=== PATIENT | female | born 1990 | race Caucasian/White ===

== ENCOUNTER 2018-08-16 18:11 | Emergency (ER) | payer BC, MEDICAID ==
[~2018-08-16] VITALS: Ht 167.6 cm; Wt 54.5 kg
[2018-08-16] MEDS ORDERED: adenosine 3mg/ml 2ml vial IV ONE ×2 (18:25)
[2018-08-16] MEDS ORDERED: ondansetron/PF 4mg/2ml inj IV ONE (18:30)
[2018-08-16 18:47] LABS: BASOPHILS % (AUTO) 0.3 % (0-1); EOSINOPHILS % (AUTO) 0.2 % (0-6); HEMOGLOBIN 15.5 g/dl (12.0-16.0); LYMPHOCYTES % (AUTO) 22.2 % (21-51); MEAN CORPUSCULAR HEMOGLOBIN 31.1 PG (27.0-31.0); MEAN CORPUSCULAR HGB CONC 33.6 g/dL (33.0-36.5); MEAN CORPUSCULAR VOLUME 92.3 FL (78-98); MEAN PLATELET VOLUME 6.8 FL (7.4-10.4); MONOCYTES # (AUTO) 0.8 X10'3 (0-0.9); MONOCYTES % (AUTO) 5.6 % (2-12); NEUTROPHILS # (AUTO) 9.8 X10'3 (1.8-7.7); NEUTROPHILS % (AUTO) 71.7 % (42-75); PLATELET COUNT 358 X10'3 (140-440); RED BLOOD COUNT 4.98 X10'6 (4.20-5.60); RED CELL DISTRIBUTION WIDTH 13.5 % (11.5-14.5); WHITE BLOOD COUNT 13.7 X10'3 (4.5-11.0)
[2018-08-16 19:00] LABS: ALANINE AMINOTRANSFERASE 22 U/L (12-78); ALBUMIN/GLOBULIN RATIO 1.2 (1.1-1.5); ALKALINE PHOSPHATASE 88 IU/L (46-116); ANION GAP 11 (8-16); ASPARTATE AMINO TRANSFERASE 21 U/L (10-37); BILIRUBIN,TOTAL 0.3 MG/DL (0.1-1.0); BLOOD UREA NITROGEN 9 MG/DL (7-18); CALCIUM 8.9 MG/DL (8.5-10.1); CHLORIDE 99 MMOL/L (99-107); CREATININE 0.82 MG/DL (0.40-0.90); GLUCOSE 206 MG/DL (70-104); POTASSIUM 3.6 MMOL/L (3.5-5.1); SODIUM 135 MMOL/L (135-145); TOTAL CARBON DIOXIDE 25.4 MMOL/L (24-32); TOTAL PROTEIN 7.4 G/DL (6.4-8.2); eGFR 84 ML/MIN
[2018-08-16 19:07] LABS: MAGNESIUM 1.9 MG/DL (1.5-2.4)
[2018-08-16] MEDS ORDERED: propranolol 10mg tablet PO ONE (19:25)
[2018-08-16] MEDS ORDERED: LORazepam 1 MG tablet PO ONE (20:15)
[2018-08-16 21:08] VITALS: BP 118/62
[2018-08-16] MEDS ORDERED: LORA0.5T PO (22:28)
== END 2018-08-16 22:36 | disposition home or self-care (01) ==
LOC: ER 18:12
DX: I47.1 Supraventricular tachycardia (principal); F17.210 Nicotine dependence, cigarettes, uncomplicated; F12.90 Cannabis use, unspecified, uncomplicated; Z88.8 Allergy status to other drugs, medicaments and biological substances; Z79.899 Other long term (current) drug therapy; Z98.890 Other specified postprocedural states
CPT/HCPCS: 36415; 71045; 80053; 83735; 83880; 84484; 85025; 93005; 96374; 99284; J0153; J2405

== ENCOUNTER 2020-07-12 00:50 | Emergency (ER) | payer MEDICAID ==
[~2020-07-12] VITALS: Ht 162.6 cm; Wt 72.7 kg
[2020-07-12 00:51] VITALS: BP 109/87
[2020-07-12 01:10] LABS: URINE HCG NEGATIVE (NEG)
[2020-07-12 01:21] LABS: CLARITY,URINE CLEAR (Clear); COLOR,URINE YELLOW (Yellow); GLUCOSE, URINE NEGATIVE (Neg); KETONES,URINE NEGATIVE (Neg); LEUKOCYTE ESTERASE ,URINE NEGATIVE (Neg); NITRITES, URINE NEGATIVE (Neg); OCCULT BLOOD,URINE NEGATIVE (Neg); PROTEIN,URINE NEGATIVE (Neg); UROBILINOGEN,URINE 0.2 E.U/dL (0.2-1.0)
[2020-07-12 01:23] LABS: UA COLLECTION TYPE CLN CATCH MIDSTREAM
[2020-07-12 01:24] LABS: URINE AMPHETAMINE SCREEN NEGATIVE (Neg); URINE BARBITUATE SCREEN NEGATIVE (Neg); URINE BENZODIAZEPINES SCREEN NEGATIVE (Neg); URINE CANNABINOID SCREEN NEGATIVE (Neg); URINE COCAINE SCREEN NEGATIVE (Neg); URINE METHADONE SCREEN NEGATIVE (Neg); URINE OPIATE SCREEN NEGATIVE (Neg); URINE PHENCYCLIDINE SCREEN NEGATIVE (Neg)
--- NOTE | 2020-07-12 05:39 | NUR ---
no nursing interventions required other than urine collection.
== END 2020-07-12 05:40 | disposition home or self-care (01) ==
LOC: ER 00:50
DX: F10.129 Alcohol abuse with intoxication, unspecified (principal); R47.81 Slurred speech; F12.90 Cannabis use, unspecified, uncomplicated; Z98.890 Other specified postprocedural states; Z72.89 Other problems related to lifestyle; Z88.8 Allergy status to other drugs, medicaments and biological substances; Y90.9 Presence of alcohol in blood, level not specified
CPT/HCPCS: 80305; 81003; 81025; 93005; 99284

== ENCOUNTER 2020-09-27 17:48 | Emergency (ER) | payer MEDICAID ==
[~2020-09-27] VITALS: Ht 167.6 cm; Wt 72.7 kg
[2020-09-27] MEDS ORDERED: adenosine 3mg/ml 2ml vial IV ONE ×3 (18:00→18:15)
[2020-09-27] MEDS ORDERED: normal saline 1000ML IV soln IVB ONE (18:15)
[2020-09-27 18:24] LABS: BASOPHILS # (AUTO) 0.1 X10'3 (0-0.2); BASOPHILS % (AUTO) 0.7 % (0-1); EOSINOPHILS # (AUTO) 0.1 X10'3 (0-0.9); EOSINOPHILS % (AUTO) 1.7 % (0-6); HEMATOCRIT 39.7 % (35.0-45.0); HEMOGLOBIN 13.8 g/dl (12.0-16.0); LYMPHOCYTES # (AUTO) 3.1 X10'3 (1.1-4.8); LYMPHOCYTES % (AUTO) 40.3 % (21-51); MEAN CORPUSCULAR HEMOGLOBIN 31.2 PG (27.0-31.0); MEAN CORPUSCULAR HGB CONC 34.6 g/dL (33.0-36.5); MEAN CORPUSCULAR VOLUME 89.9 FL (78-98); MEAN PLATELET VOLUME 6.3 FL (7.4-10.4); MONOCYTES # (AUTO) 0.5 X10'3 (0-0.9); MONOCYTES % (AUTO) 7.2 % (2-12); NEUTROPHILS # (AUTO) 3.8 X10'3 (1.8-7.7); NEUTROPHILS % (AUTO) 50.1 % (42-75); PLATELET COUNT 398 X10'3 (140-440); RED BLOOD COUNT 4.42 X10'6 (4.20-5.60); RED CELL DISTRIBUTION WIDTH 14.3 % (11.5-14.5); WHITE BLOOD COUNT 7.6 X10'3 (4.5-11.0)
[2020-09-27 18:34] LABS: ALANINE AMINOTRANSFERASE 17 U/L (12-78); ALBUMIN 3.7 G/DL (3.4-5.0); ALKALINE PHOSPHATASE 86 IU/L (46-116); ANION GAP 10 (8-16); ASPARTATE AMINO TRANSFERASE 8 U/L (10-37); BILIRUBIN,TOTAL 0.1 MG/DL (0.1-1.0); BLOOD UREA NITROGEN 11 MG/DL (7-18); BUN/CREATININE RATIO 15.5 (6.6-38.0); CALCIUM 8.2 MG/DL (8.5-10.1); CHLORIDE 105 MMOL/L (99-107); CREATININE 0.71 MG/DL (0.40-0.90); GLUCOSE 128 MG/DL (70-104); MAGNESIUM 1.8 MG/DL (1.5-2.4); POTASSIUM 3.5 MMOL/L (3.5-5.1); SODIUM 135 MMOL/L (135-145); TOTAL CARBON DIOXIDE 19.9 MMOL/L (24-32); TOTAL PROTEIN 7.3 G/DL (6.4-8.2); eGFR > 90 ML/MIN
[2020-09-27 19:02] VITALS: BP 102/70
== END 2020-09-27 19:17 | disposition home or self-care (01) ==
LOC: ER 17:49
DX: I47.1 Supraventricular tachycardia (principal); R42 Dizziness and giddiness; R06.02 Shortness of breath; F12.90 Cannabis use, unspecified, uncomplicated; Z98.890 Other specified postprocedural states; Z72.89 Other problems related to lifestyle; Z88.8 Allergy status to other drugs, medicaments and biological substances
CPT/HCPCS: 36415; 71045; 80053; 83735; 85025; 93005; 96374; 99285; J0153; J7030

== ENCOUNTER 2022-01-23 22:05 | Emergency (ER) | payer MEDICAID ==
[~2022-01-23] VITALS: Ht 167.6 cm; Wt 59.1 kg
[2022-01-23 22:31] VITALS: BP 129/91
[2022-01-23] MEDS ORDERED: mineral oil 133ml enema RC ONE (22:50)
== END 2022-01-24 02:16 ==
LOC: ER 22:05
DX: Z02.89 Encounter for other administrative examinations (principal); K59.00 Constipation, unspecified; R11.0 Nausea; F12.90 Cannabis use, unspecified, uncomplicated; Z72.89 Other problems related to lifestyle; Z98.890 Other specified postprocedural states; Z88.8 Allergy status to other drugs, medicaments and biological substances
CPT/HCPCS: 70450; 74018; 99284

== ENCOUNTER 2022-01-24 03:14 | Emergency (ER) | payer MEDICAID ==
[~2022-01-24] VITALS: Ht 167.6 cm; Wt 59.0 kg
[2022-01-24 03:38] VITALS: BP 113/79
== END 2022-01-24 04:49 ==
LOC: ER 03:15
DX: Z13.89 Encounter for screening for other disorder (principal); T40.415A Adverse effect of fentanyl or fentanyl analogs, initial encounter; F17.200 Nicotine dependence, unspecified, uncomplicated; F12.90 Cannabis use, unspecified, uncomplicated; Z72.89 Other problems related to lifestyle; Z98.890 Other specified postprocedural states; Z79.899 Other long term (current) drug therapy; Y92.89 Other specified places as the place of occurrence of the external cause
CPT/HCPCS: 99283

== ENCOUNTER 2023-02-10 16:16 | Emergency (ER) | payer MEDICAID ==
[~2023-02-10] VITALS: Ht 167.6 cm; Wt 63.2 kg
[2023-02-10 16:40] VITALS: BP 118/74; PULSE 101; TEMP 98.8; O2SAT 99
[2023-02-10] MEDS ORDERED: AMOX-101 PO (16:55)
[2023-02-10] MEDS ORDERED: IBUP-1986 PO (16:55)
[2023-02-10] MEDS ORDERED: ketorolac trometh. 30mg/ml inj. IM ONE (17:00)
[2023-02-10 17:10] VITALS: RESP 18
== END 2023-02-10 17:17 | disposition home or self-care (01) ==
LOC: ER 16:17
DX: K08.89 Other specified disorders of teeth and supporting structures (principal); F12.90 Cannabis use, unspecified, uncomplicated; Z72.89 Other problems related to lifestyle; Z88.8 Allergy status to other drugs, medicaments and biological substances; Z79.2 Long term (current) use of antibiotics; Z79.899 Other long term (current) drug therapy
CPT/HCPCS: 96372; 99283; J1885

== ENCOUNTER → 2023-02-21 | Emergency (ER) | payer MEDICAID ==
[~2023-02-21] VITALS: Ht 167.6 cm; Wt 65.3 kg
[~2023-02-21] MED LIST: CIPR-259 PO; IBUP-1986 PO; iohexol 300mg/ml 100ml inj. ONE
[2023-02-21 19:06] LABS: URINE HCG NEGATIVE (NEG)
[2023-02-21 19:07] LABS: BILIRUBIN,URINE NEGATIVE (Neg); CLARITY,URINE SLIGHTLY CLOUDY (Clear); COLOR,URINE STRAW (Yellow); GLUCOSE, URINE NEGATIVE (Neg); KETONES,URINE NEGATIVE (Neg); LEUKOCYTE ESTERASE ,URINE SMALL (Neg); NITRITES, URINE NEGATIVE (Neg); OCCULT BLOOD,URINE NEGATIVE (Neg); PROTEIN,URINE NEGATIVE (Neg); UROBILINOGEN,URINE 0.2 E.U/dL (0.2-1.0)
[2023-02-21 19:10] LABS: UA COLLECTION TYPE CLN CATCH MIDSTREAM
[2023-02-21 19:15] LABS: BACTERIA,URINE FEW /HPF (Neg); MUCUS STRANDS FEW /LPF (Neg); RBC,URINE 0-2 /HPF (0-2); SQUAMOUS EPITHELIAL CELL,UR FEW /LPF (FEW); TRANSITIONAL EPI CELLS,URINE FEW /HPF
[2023-02-21 19:20] LABS: BASOPHILS % (AUTO) 0.3 % (0-1); EOSINOPHILS # (AUTO) 0.2 X10'3 (0-0.9); EOSINOPHILS % (AUTO) 2.2 % (0-6); HEMATOCRIT 41.3 % (35.0-45.0); HEMOGLOBIN 13.9 g/dl (12.0-16.0); LYMPHOCYTES # (AUTO) 3.9 X10'3 (1.1-4.8); LYMPHOCYTES % (AUTO) 43.1 % (21-51); MEAN CORPUSCULAR HGB CONC 33.7 g/dL (33.0-36.5); MEAN CORPUSCULAR VOLUME 89.1 FL (78-98); MEAN PLATELET VOLUME 6.9 FL (7.4-10.4); MONOCYTES # (AUTO) 0.6 X10'3 (0-0.9); MONOCYTES % (AUTO) 6.7 % (2-12); NEUTROPHILS # (AUTO) 4.4 X10'3 (1.8-7.7); NEUTROPHILS % (AUTO) 47.7 % (42-75); PLATELET COUNT 285 X10'3 (140-440); RED BLOOD COUNT 4.63 X10'6 (4.20-5.60); RED CELL DISTRIBUTION WIDTH 13.7 % (11.5-14.5); WHITE BLOOD COUNT 9.2 X10'3 (4.5-11.0)
[2023-02-21 19:31] LABS: ALANINE AMINOTRANSFERASE 28 U/L (12-78); ALBUMIN 4.1 G/DL (3.4-5.0); ALBUMIN/GLOBULIN RATIO 1.6 (1.1-1.5); ALKALINE PHOSPHATASE 66 IU/L (46-116); ANION GAP 6 (8-16); ASPARTATE AMINO TRANSFERASE 19 U/L (10-37); BILIRUBIN,TOTAL 0.2 MG/DL (0.1-1.0); BLOOD UREA NITROGEN 11 MG/DL (7-18); BUN/CREATININE RATIO 14.9 (10.0-20.0); CALCIUM 8.8 MG/DL (8.5-10.1); CHLORIDE 102 MMOL/L (99-107); CREATININE 0.74 MG/DL (0.40-0.90); GLUCOSE 84 MG/DL (70-104); LIPASE 24 U/L (16-77); POTASSIUM 3.7 MMOL/L (3.5-5.1); SODIUM 138 MMOL/L (135-145); TOTAL CARBON DIOXIDE 29.6 MMOL/L (24-32); TOTAL PROTEIN 6.7 G/DL (6.4-8.2); eCRCL 103 ML/MIN; eGFR > 90 ML/MIN
--- NOTE | 2023-02-21 20:10 | NUR ---
Per pt under no circumstances am I to be given any opiates.
[2023-02-21 22:37] VITALS: BP 98/60; PULSE 92; RESP 16; TEMP 98.6; O2SAT 97
== END | disposition home or self-care (01) ==
LOC: ER 18:25
DX: N39.0 Urinary tract infection, site not specified (principal); Z88.8 Allergy status to other drugs, medicaments and biological substances; Z79.2 Long term (current) use of antibiotics; Z79.1 Long term (current) use of non-steroidal anti-inflammatories (NSAID)
CPT/HCPCS: 36415; 74177; 80053; 81001; 81025; 83690; 85025; 87088; 99285; J3490; Q9967

== ENCOUNTER 2023-04-07 15:10 | Emergency (ER) | payer MEDICAID ==
[~2023-04-07] VITALS: Ht 167.6 cm; Wt 63.6 kg
[~2023-04-07 15:10] MED LIST changes: -CIPR-259 PO; -iohexol 300mg/ml 100ml inj. ONE
[2023-04-07 15:16] VITALS: BP 107/69; PULSE 105; RESP 16; TEMP 98.7; O2SAT 99
== END 2023-04-07 16:23 | disposition home or self-care (01) ==
LOC: ER 15:10
DX: S62.612A Displaced fracture of proximal phalanx of right middle finger, initial encounter for closed fracture (principal); Z72.89 Other problems related to lifestyle; Z98.890 Other specified postprocedural states; Z88.8 Allergy status to other drugs, medicaments and biological substances; Z79.899 Other long term (current) drug therapy; X50.1XXA Overexertion from prolonged static or awkward postures, initial encounter; Y93.89 Activity, other specified; Y92.89 Other specified places as the place of occurrence of the external cause; Y99.8 Other external cause status
CPT/HCPCS: 29130; 73140; 99283

== ENCOUNTER 2023-04-28 13:40 | Emergency (ER) | payer MEDICAID ==
[~2023-04-28] VITALS: Ht 167.6 cm; Wt 70.3 kg
[2023-04-28] MEDS ORDERED: ketorolac trometh inj. 60 MG/2 ML VIAL IM ONE (15:40)
[2023-04-28] MEDS ORDERED: ondansetron 4mg rapidly disintigrating tab PO ONE (15:55)
[2023-04-28] MEDS ORDERED: HYDROcodone/acetaminophen 10/325mg tab PO ONE (15:55)
[2023-04-28] MEDS ORDERED: HYDR-3965 PO (16:21)
[2023-04-28] MEDS ORDERED: ONDA4TAB12 PO (16:21)
[2023-04-28 16:25] VITALS: BP 120/60; PULSE 74; RESP 18; TEMP 97.8; O2SAT 97
== END 2023-04-28 16:26 | disposition home or self-care (01) ==
LOC: ER 13:40
DX: S32.2XXA Fracture of coccyx, initial encounter for closed fracture (principal); Z88.8 Allergy status to other drugs, medicaments and biological substances; Z79.1 Long term (current) use of non-steroidal anti-inflammatories (NSAID); Z79.899 Other long term (current) drug therapy; W19.XXXA Unspecified fall, initial encounter; Y93.89 Activity, other specified; Y92.89 Other specified places as the place of occurrence of the external cause; Y99.8 Other external cause status
CPT/HCPCS: 72220; 96372; 99284; J1885

== ENCOUNTER 2023-08-24 07:15 | Emergency (ER) | payer MEDICAID ==
[~2023-08-24] VITALS: Ht 167.6 cm; Wt 77.3 kg
[~2023-08-24 07:15] MED LIST changes: +ONDA4TAB12 PO
[2023-08-24] MEDS: ketorolac tromethamine 15mg/ml inj. IV ONE (11:33)
[2023-08-24] MEDS: diazepam 5mg tablet PO ONE (11:35)
[2023-08-24] MEDS: ketorolac tromethamine 15mg/ml inj. IM ONE (11:45)
[2023-08-24 11:54] LABS: BILIRUBIN,URINE NEGATIVE (Neg); CLARITY,URINE CLOUDY (Clear); COLOR,URINE STRAW (Yellow); GLUCOSE, URINE NEGATIVE (Neg); KETONES,URINE NEGATIVE (Neg); LEUKOCYTE ESTERASE ,URINE NEGATIVE (Neg); NITRITES, URINE NEGATIVE (Neg); OCCULT BLOOD,URINE TRACE-INTACT (Neg); PROTEIN,URINE NEGATIVE (Neg); URINE HCG NEGATIVE (NEG); UROBILINOGEN,URINE 0.2 E.U/dL (0.2-1.0)
[2023-08-24 11:59] LABS: UA COLLECTION TYPE CLN CATCH MIDSTREAM
[2023-08-24 12:01] LABS: SQUAMOUS EPITHELIAL CELL,UR MANY /LPF (FEW)
[2023-08-24 12:02] LABS: URINE AMPHETAMINE SCREEN NEGATIVE (Neg); URINE BARBITUATE SCREEN NEGATIVE (Neg); URINE BENZODIAZEPINES SCREEN NEGATIVE (Neg); URINE CANNABINOID SCREEN POSITIVE (Neg); URINE COCAINE SCREEN NEGATIVE (Neg); URINE METHADONE SCREEN NEGATIVE (Neg); URINE OPIATE SCREEN NEGATIVE (Neg); URINE PHENCYCLIDINE SCREEN NEGATIVE (Neg)
[2023-08-24 12:06] LABS: BACTERIA,URINE 1+ /HPF (Neg)
[2023-08-24 12:07] LABS: RBC,URINE 0-2 /HPF (0-2)
[2023-08-24 12:27] VITALS: BP 123/80; PULSE 82; O2SAT 98
[2023-08-24] MEDS ORDERED: CYCL-1 PO (13:33)
[2023-08-24] MEDS ORDERED: NAPR-56 PO (13:33)
[2023-08-24 13:44] VITALS: RESP 17; TEMP 98.6
== END 2023-08-24 13:45 | disposition home or self-care (01) ==
LOC: ER 07:15
DX: M47.812 Spondylosis without myelopathy or radiculopathy, cervical region (principal); M19.90 Unspecified osteoarthritis, unspecified site; Z88.8 Allergy status to other drugs, medicaments and biological substances; Z79.1 Long term (current) use of non-steroidal anti-inflammatories (NSAID)
CPT/HCPCS: 72125; 80305; 81001; 81025; 96372; 99285; J1885

== ENCOUNTER 2024-05-15 18:20 | Emergency (ER) | payer MEDICAID ==
[~2024-05-15] VITALS: Ht 167.6 cm; Wt 79.3 kg
[~2024-05-15 18:20] MED LIST changes: +CYCL-1 PO; +ONDA-243 PO; -ONDA4TAB12 PO
[2024-05-15 18:54] VITALS: TEMP 98.7
[2024-05-15 19:33] LABS: BASOPHILS % (AUTO) 0.4 % (0-1); EOSINOPHILS # (AUTO) 0.2 X10'3 (0-0.9); HEMATOCRIT 39.5 % (35.0-45.0); HEMOGLOBIN 13.6 g/dl (12.0-16.0); LYMPHOCYTES # (AUTO) 3.4 X10'3 (1.1-4.8); LYMPHOCYTES % (AUTO) 35.9 % (21-51); MEAN CORPUSCULAR HGB CONC 34.4 g/dL (33.0-36.5); MEAN CORPUSCULAR VOLUME 90.3 FL (78-98); MEAN PLATELET VOLUME 6.6 FL (7.4-10.4); MONOCYTES # (AUTO) 0.6 X10'3 (0-0.9); NEUTROPHILS # (AUTO) 5.2 X10'3 (1.8-7.7); NEUTROPHILS % (AUTO) 55.7 % (42-75); PLATELET COUNT 309 X10'3 (140-440); RED BLOOD COUNT 4.38 X10'6 (4.20-5.60); RED CELL DISTRIBUTION WIDTH 12.5 % (11.5-14.5); WHITE BLOOD COUNT 9.4 X10'3 (4.5-11.0)
[2024-05-15 19:41] LABS: BILIRUBIN,URINE NEGATIVE (Neg); CLARITY,URINE CLEAR (Clear); COLOR,URINE YELLOW (Yellow); GLUCOSE, URINE NEGATIVE (Neg); KETONES,URINE NEGATIVE (Neg); LEUKOCYTE ESTERASE ,URINE NEGATIVE (Neg); NITRITES, URINE NEGATIVE (Neg); OCCULT BLOOD,URINE LARGE (Neg); PROTEIN,URINE NEGATIVE (Neg); UROBILINOGEN,URINE 0.2 E.U/dL (0.2-1.0)
[2024-05-15] MEDS: normal saline 1000ml 1,000 ML IV ONE (19:45)
[2024-05-15 19:58] VITALS: BP 92/64; PULSE 69; RESP 16; O2SAT 100
[2024-05-15 20:03] LABS: UA COLLECTION TYPE CLN CATCH MIDSTREAM
[2024-05-15 20:03] LABS: ALBUMIN 3.9 G/DL (3.4-5.0); ANION GAP 9 (8-16); BLOOD UREA NITROGEN 13 MG/DL (7-18); BUN/CREATININE RATIO 23.6 (10.0-20.0); CALCIUM 9.1 MG/DL (8.5-10.1); CHLORIDE 102 MMOL/L (99-107); CREATININE 0.55 MG/DL (0.40-0.90); GLUCOSE 88 MG/DL (70-104); POTASSIUM 3.8 MMOL/L (3.5-5.1); SODIUM 139 MMOL/L (135-145); TOTAL CARBON DIOXIDE 27.8 MMOL/L (24-32); eCRCL 137 ML/MIN; eGFR > 90 ML/MIN
[2024-05-15 20:04] LABS: BETA HCG,QUANTITATIVE 12579 mIU/ml
[2024-05-15 20:07] LABS: BACTERIA,URINE FEW /HPF (Neg); SQUAMOUS EPITHELIAL CELL,UR FEW /LPF (FEW); WBC,URINE 0-4 /HPF (0-4)
== END 2024-05-16 18:59 | disposition home or self-care (01) ==
LOC: ER 18:21
DX: O03.9 Complete or unspecified spontaneous abortion without complication (principal); M19.90 Unspecified osteoarthritis, unspecified site; G89.29 Other chronic pain; Z88.8 Allergy status to other drugs, medicaments and biological substances; Z79.1 Long term (current) use of non-steroidal anti-inflammatories (NSAID); Z79.899 Other long term (current) drug therapy; Z98.890 Other specified postprocedural states
CPT/HCPCS: 36415; 76801; 76817; 80048; 81001; 84702; 85025; 86885; 86900; 86901; 96360; 99284; J7030

== ENCOUNTER 2024-05-20 08:42 | Emergency (ER) | payer MEDICAID ==
[~2024-05-20] VITALS: Ht 167.6 cm; Wt 81.8 kg
[2024-05-20 09:08] VITALS: BP 129/78; PULSE 118; RESP 18; TEMP 97.3; O2SAT 97
== END 2024-05-20 12:01 | disposition left against medical advice (07) ==
LOC: ER 08:43
DX: R05.9 Cough, unspecified (principal); Z88.8 Allergy status to other drugs, medicaments and biological substances; Z53.21 Procedure and treatment not carried out due to patient leaving prior to being seen by health care provider

== ENCOUNTER 2024-05-23 23:49 | Emergency (ER) | payer MEDICAID ==
[~2024-05-23] VITALS: Ht 165.1 cm; Wt 65.0 kg
[2024-05-23 23:53] VITALS: TEMP 97.7
[2024-05-24] MEDS ORDERED: OMEP40CA21 PO (03:41)
[2024-05-24] MEDS: ringers solution, lacted 1,000 ML IV ONE (03:55)
[2024-05-24] MEDS: LORazepam 2 mg/ml vial IV ONE (03:55)
[2024-05-24] MEDS: hydrOXYzine 25 MG tablet PO ONE (04:08)
[2024-05-24] MEDS: pantoprazole 40mg Tablet.DR PO ONE (04:08)
[2024-05-24] MEDS: diazepam 5mg tablet PO ONE (05:23)
[2024-05-24 06:03] VITALS: BP 110/63; PULSE 65; RESP 14; O2SAT 99
== END 2024-05-24 06:06 | disposition home or self-care (01) ==
LOC: ER 23:50
DX: F41.9 Anxiety disorder, unspecified (principal); K21.9 Gastro-esophageal reflux disease without esophagitis; F10.980 Alcohol use, unspecified with alcohol-induced anxiety disorder; M19.90 Unspecified osteoarthritis, unspecified site; Z88.6 Allergy status to analgesic agent; Z79.899 Other long term (current) drug therapy; Y90.9 Presence of alcohol in blood, level not specified
CPT/HCPCS: 93005; 99284; Q0177; J7120

== ENCOUNTER 2024-06-04 18:23 | Emergency (ER) | payer MEDICAID ==
[~2024-06-04] VITALS: Ht 167.6 cm; Wt 76.0 kg
[~2024-06-04 18:23] MED LIST changes: +OMEP40CA21 PO
[2024-06-04] MEDS ORDERED: AMOX875T10 PO (19:06)
[2024-06-04] MEDS: acetaminophen 325mg tablet PO STA (19:19)
[2024-06-04] MEDS: ibuprofen tablet 400 MG TABLET PO STA (19:19)
[2024-06-04] MEDS: amoxicillin 250mg capsule PO STA (19:20)
[2024-06-04 19:35] VITALS: BP 128/72; PULSE 110; RESP 20; TEMP 97.9; O2SAT 98
== END 2024-06-04 19:36 | disposition home or self-care (01) ==
LOC: ER 18:24
DX: H66.92 Otitis media, unspecified, left ear (principal); M19.90 Unspecified osteoarthritis, unspecified site; Z98.890 Other specified postprocedural states
CPT/HCPCS: 99284

== ENCOUNTER 2024-11-01 04:00 | Emergency (ER) | payer MEDICAID ==
[~2024-11-01] VITALS: Ht 167.6 cm; Wt 54.1 kg
[~2024-11-01 04:00] MED LIST changes: -OMEP40CA21 PO
[2024-11-01 04:05] VITALS: BP 106/77; PULSE 82; RESP 15; TEMP 96.4; O2SAT 100
--- NOTE | 2024-11-01 04:28 | Physician Documentation ---
History of Present Illness ~ Chief Complaint: Wound Stated Complaint: FALL Time Seen by MD: 04:16 Primary Medical Doctor: TANYA MENDOZA HPI 34-year-old female who presents for evaluation of wound on her right shoulder. She had fallen a week ago. She a brace the skin. She now reports some redness that is spreading and is more painful. She has been able to arrange the shoulde r fully and use her right upper extremity without any difficulty. She noticed that she is feeling rather poorly, experiencing brain fog, chills, generalized malaise. Denies any other symptoms such as chest pain, difficulty breathing, nausea, vomiting, diarrhea, abdominal pain. She states that she is using fentanyl, last use was three days ago, she has been seen at [facility] for withdrawal medication, however did not picked up it from the pharmacy. Tetanus within 5 years?: Yes Medication Reconciliation Allergies: Coded Allergies: midazolam (Verified Allergy, Unknown, 11/01/24) Scheduled Cyclobenzaprine* (Cyclobenzaprine*), 1 TAB PO HS Ibuprofen (Ibuprofen), 1 TAB PO Q8H Scheduled PRN ONDANSETRON ODT 4mg tablet (Ondansetron Odt), 1 TAB PO Q6H PRN PRN for nausea/vomiting Past Medical History Past Medical History: No Pertinent History, Arrhythmia, Arthritis, Chronic Pain, *PSYCH* Past Surgical History: noncontributory, orthopedic surgeries Alcohol Use: Sober Drug Use: methamphetamine, other Lives In: Home Review of Systems ROS 10 point review of systems was performed and unless noted above in HPI is negative for acute process/complaint. Physical Exam Vital Signs: Temperature: 96.4, Source: Temporal, Heart Rate: 82, Respiratory Rate: 15, BP: 106/77, Pulse Oximetry: 100, Weight: 54.100 Physical Exam GENERAL: Awake, alert, oriented, GCS 15, no apparent distress, non-toxic appearing, answers questions, follows commands appropriately. HEENT: Atraumatic, normocephalic, pupils equal, extraocular muscles intact, sclerae anicteric, mucus membranes moist, oropharynx is clear, no stridor. NECK: supple, full active range of motion, trachea midline, no thyromegaly, no l ymphadenopathy, no JVD. CARDIOVASCULAR: regular rate/rhythm, no murmurs/gallops/rubs, Pulses are 2+ in all extremities and symmetric. Capillary refill less than 2 seconds. PULMONARY: Nonlabored, good air movement ,no respiratory distress, speaking in full sentences, clear to auscultation bilaterally, no wheezing, no ronchi, no rales, no accessory muscle use. GASTROINTESTINAL: Soft, non-tender, non-distended, normal active bowel sounds, no organomegaly, no pulsatile masses, no CVA tenderness. NEUROLOGIC: Lucid with normal mental status. Normal facial symmetry. Moves all extremities symmetrically and with purpose. No truncal ataxia. Speech is fluid without evidence of dysarthria or aphasia, no focal deficits appreciated. MUSCULOSKELETAL: There is full range of motion of all extremities. There is no joint pain or joint swelling or joint erythema. There is no muscle pain or tenderness or swelling. EXTREMITIES: warm, well-perfused, no cyanosis, no clubbing, no edema, no acute deformities. Skin: warm, dry, no rashes or lesions, no jaundice, no petechiae orpurpura. No ecchymosis. PSYCHIATRIC: Normal affect, normal insight, normal concentration. Focused exam: [] There is an abrasion with a some surrounding erythema, no bleeding, no purulent discharge. Calor noted. No crepitus. Full range of motion of the shoulder. No deformity. Neurovascularly intact distally. Progress Results/Orders Results/Orders Vital Signs 11/01/24 04:05 Temp 96.4 Pulse 82 Resp 15 B/P (MAP) 106/77 Pulse Ox 100 Medical Decision Making Findings Facility Status: ED Holds, [facility] process The plan was discussed with the patient, who demonstrates clear understanding of the plan and is in agreement with the plan unless otherwise noted in the chart. All questions have been answered, all concerns were addressed unless otherwise documented. I was available throughout their ED stay for frequent reassessment and questions. Differential Diagnoses (considered and possible or likely): [Shoulder abrasion, cellulitis, shoulder contusion, unlikely to be shoulder fracture or shoulder dislocation. Suspect fentanyl withdrawal.] ??Differential Diagnoses (considered and unlikely, not requiring evaluation currently): [No evidence of neurovascular injury] MDM Data Please see HPI for the following: Independent Historians and external Records Review. Historian: [Patient] Independent Historians: ?[None] Medication Management: [Reviewed medication list] Social History and determinants: [Reviewed] Please see the body of the note for the following: Any independent inter pretations of ECG, imaging studies. All vitals signs/haemodynamics, ordered tests were independently reviewed and interpreted by myself. Nursing triage complaint and vitals reviewed, additional nursing notes were reviewed as available and I agree unless otherwise noted or documented in contradiction in the chart Vital Signs: Independently reviewed Labs: Independently interpreted Imaging: Independently interpreted Old Medical Records: Independently reviewed, see HPI for relevant summary and information Pulse Oximetry: [99%] interpreted as [normal on room air] by me Additionally notably showing: [Hemodynamically stable] Tests considered but not ordered include: [Hematologic workup and imaging has been considered but does not appear to be necessary given clinical nature of diagnosis] Social Determinants of Health Impact: Patient was evaluated in [facility] [place] to healthcare due to below par ratio of patient to medical providers. [] Comorbid Conditions Impacting Present Evaluation and Care/Treatment: [Fentanyl use disorder] Management Discussions with other Healthcare Providers: [None] Treatment and Disposition Medication Management (Given or considered): []. See EMR for details Consideration for Hospitalization/Escalation/Deescalation of Care: Admission for observation has been considered, [however the patient is able to tolerate p.o., their symptoms are controlled, they are able to rely on oral medications, and their chief complaint/diagnosis can be managed on outpatient basis.] ?ED Course:?[No clinical deterioration] ?Shared decision making:?[Patient is hemodynamically stable for discharge home with follow with their primary care provider. [ ] Specific and cautious return precautions provided and discussed with full understanding. Any incidental findings were also discussed and follow up recommendations given. [] All questions answered. Patient/family were able to verbalize back return precautions. Patient/family agree to plan. Copies of imaging and laboratory studies were provided.] Code status:?FULL Please see the full Electronic Medical Record for full details of nursing documentation, medications list, other records of complete past medical history and conditions, vital signs, laboratory studies, and any radiologic study interpretations by radiologists. Portions of this note were completed using [employer] dictation software and as a result there may exist minor errors in spelling. I have reviewed elements of past family and social history and agree as included in note. Departure Disposition: HOME / SELF CARE / HOMELESS Impression: Primary Impression: Abrasion of right shoulder Additional Impression: Cellulitis Condition: Improved Discharge Instructions: Abrasion, Cellulitis, Adult Referrals: NO PRIMARY CARE PROVIDER (PCP) Prescriptions Cephalexin*Monohydrate* (Keflex*) 500 Mg Capsule 1 CAP PO Q6H for 10 Days, #40 CAP Prov: ISAAC KWON DO 11/01/24 Education Educated: Patient Educated regarding: diagnosis, treatment, prognosis, need for follow up Signature Scribe Signature: No scribe Attestation: This note accurately reflects clinical decisions, work performed by myself, Isaac Kwon, ISAAC CARTER DO Nov 01, 2024 04:28
[2024-11-01] MEDS ORDERED: CEPH-585 PO (04:31)
== END 2024-11-01 04:38 | disposition home or self-care (01) ==
LOC: ER 04:00
DX: S40.211A Abrasion of right shoulder, initial encounter (principal); L03.113 Cellulitis of right upper limb; Z88.4 Allergy status to anesthetic agent; X58.XXXA Exposure to other specified factors, initial encounter; Y93.89 Activity, other specified; Y92.89 Other specified places as the place of occurrence of the external cause; Y99.8 Other external cause status
CPT/HCPCS: 99283

== ENCOUNTER 2024-11-04 10:09 | Emergency (ER) | payer MEDICAID ==
[~2024-11-04] VITALS: Ht 167.6 cm; Wt 60.4 kg
[~2024-11-04 10:09] MED LIST changes: +CEPH-585 PO
[2024-11-04 10:22] VITALS: BP 120/66; PULSE 67; RESP 18; TEMP 98.1; O2SAT 100
--- NOTE | 2024-11-04 12:01 | Physician Documentation ---
History of Present Illness ~ Chief Complaint: Medical Clearance Stated Complaint: MEDICAL CLEARANCE Time Seen by MD: 11:22 Primary Medical Doctor: TANYA MENDOZA HPI 34-year-old female that presents to the emergency department for evaluation. For medical clearance after detoxing from fentanyl. Reports that she has been accepted into a rehabilitation program and needs a medical clearance in order to report to. That facility today. Tetanus within 5 years?: Yes Medication Reconciliation Allergies: Coded Allergies: midazolam (Verified Allergy, Unknown, 11/04/24) Scheduled Cephalexin*Monohydrate* (Keflex*), 1 CAP PO Q6H Cyclobenzaprine* (Cyclobenzaprine*), 1 TAB PO HS Ibuprofen (Ibuprofen), 1 TAB PO Q8H Scheduled PRN ONDANSETRON ODT 4mg tablet (Ondansetron Odt), 1 TAB PO Q6H PRN PRN for nausea/vomiting Past Medical History Past Medical History: No Pertinent History, Arrhythmia, Arthritis, Chronic Pain, *PSYCH* Past Surgical History: noncontributory, orthopedic surgeries Alcohol Use: Sober Drug Use: methamphetamine, other Lives In: Home Physical Exam Vital Signs: Temperature: 98.1, Source: Oral, Heart Rate: 67, Respiratory Rate: 18, BP: 120/66, Pulse Oximetry: 100, Weight: 60.350 Oxygen Flow Rate: 0 Progress Results/Orders Results/Orders Vital Signs 11/04/24 10:22 Temp 98.1 Pulse 67 Resp 18 B/P (MAP) 120/66 Pulse Ox 100 O2 Flow Rate 0 Medical Decision Making Findings . Medical clearance needed medical clearance provided for this patient she has no indication of medical need at this time in his appropriate for admission into a rehabilitation clinic. Differential Dx:Considerations: Include: Intoxication-Alcohol, Intoxication- Other drug, Personality disorder, Substance abuse disorder, Acute delirium, Closed head injury, Cervical spine injury, Skull fracture, Fracture(s), Abrasion, Contusion, Foreign body, Hematoma, Laceration, Alcohol withdrawl syndrom, Encephalopathy, Hepatitis, Medically stable, Other Departure Disposition: 01 HOME / SELF CARE / HOMELESS Impression: Primary Impression: General medical exam Condition: Stable Discharge Instructions: Medical Screening Exam Additional Instructions: Patient undergone a physical examination and is appropriate for admission into a rehabilitation clinic at this time. Is no medical need that would impede her receiving care at the area that rehabilitation clinic at this time. Patient is not demonstrating any symptoms of withdrawal currently but she has weaned herself off Suboxone. Referrals: NO PRIMARY CARE PROVIDER (PCP) Education Educated: Patient Educated regarding: need for follow up NARCISA SANCHESP Nov 04, 2024 12:01
[2024-11-05] MEDS ORDERED: BUPR1FIL7 SL (11:47)
[2024-11-05] MEDS ORDERED: CARI1.5C PO (12:48)
== END 2024-11-04 12:32 | disposition home or self-care (01) ==
LOC: ER 10:10
DX: Z00.8 Encounter for other general examination (principal); F15.90 Other stimulant use, unspecified, uncomplicated; Z88.4 Allergy status to anesthetic agent
CPT/HCPCS: 99282

== ENCOUNTER 2024-11-05 10:19 | Emergency (ER) | payer MEDICAID ==
[~2024-11-05] VITALS: Ht 162.6 cm; Wt 59.1 kg
[2024-11-05 10:23] VITALS: BP 130/101; PULSE 98; RESP 18; O2SAT 99
[2024-11-05] MEDS ORDERED: BUPR1FIL7 SL (11:47)
--- NOTE | 2024-11-05 11:48 | Physician Documentation ---
History of Present Illness ~ Chief Complaint: Anxiety Stated Complaint: MED REQUEST Time Seen by MD: 11:32 Primary Medical Doctor: TANYA MENDOZA HPI Patient states she was a long-time fentanyl use were and then transferred to methadone and has now been taking Suboxone. She says her last dose was yesterday and feels as though she is withdrawing. Denies any HI or SI Medication Reconciliation Allergies: Coded Allergies: midazolam (Verified Allergy, Unknown, 11/04/24) Scheduled Buprenorphine HCl/Naloxone HCl (Suboxone 12 mg-3 mg Sl Film), 1 STRIP SL DAILY Cariprazine Hydrochloride (Vraylar), 1 CAP PO DAILY Cephalexin*Monohydrate* (Keflex*), 1 CAP PO Q6H Cyclobenzaprine* (Cyclobenzaprine*), 1 TAB PO HS Ibuprofen (Ibuprofen), 1 TAB PO Q8H Scheduled PRN ONDANSETRON ODT 4mg tablet (Ondansetron Odt), 1 TAB PO Q6H PRN PRN for nausea/vomiting Past Medical History Past Medical History: No Pertinent History, Arrhythmia, Arthritis, Chronic Pain, *PSYCH* Past Surgical History: noncontributory, orthopedic surgeries Alcohol Use: Sober Drug Use: methamphetamine, other Lives In: Home Review of Systems All Other Systems at this time: Reviewed and Negative ROS As stated above in the HPI, otherwise all systems are reviewed and negative. Physical Exam Vital Signs: Temperature: 98.5, Source: Temporal, Heart Rate: 98, Respiratory Rate: 18, BP: 130/101, Pulse Oximetry: 99, Weight: 59.090 Oxygen Flow Rate: 0 Physical Exam General: Alert, no apparent distress. Extremities: Normal range of motion, no deformity. Neurologic: Oriented x4. Psychiatric: Normal mood and affect. Anxious appearing Skin: Normal color, warm and dry. No edema, no ecchymosis. Progress Results/Orders Results/Orders Completed Orders - YANIQUE ALCARAZ NP Buprenorphine/Naloxone Sl Film (Suboxone (11/05/24 11:45) Medications Received in ER Medications (Trade) Dose Ordered Sig/Harsh Route PRN Reason Start Time Stop Time Status Last Admin Dose Admin (Suboxone 8MG-2MG SL film) 1 film NOW ONCE SL 11/05/24 11:45 11/05/24 11:46 DC 11/05/24 12:06 1 FILM Vital Signs 11/05/24 11/05/24 10:23 12:07 Temp 98.5 98.5 Pulse 98 Resp 18 B/P (MAP) 130/101 Pulse Ox 99 O2 Flow Rate 0 Medical Decision Making Findings We will refill Suboxone as requested. Patient needs to follow up Psychiatry for further evaluation of her psychiatric meds Differential Dx:Considerations: Include: Alcohol abuse, Anxiety, Bipolar disor gerson, Conversion disorder, Depression, Encephaloathy, Homicidal, Panic disorder, Personality disorder, Schizophrenia, Substance abuse, Suicidal, Other Departure Disposition: HOME / SELF CARE / HOMELESS Impression: Primary Impression: Anxiety Additional Impression: Opioid abuse Condition: Stable Discharge Instructions: Emotional Crisis Referrals: NO PRIMARY CARE PROVIDER (PCP) Prescriptions Cariprazine Hydrochloride (Vraylar) 1.5 Mg Capsule 1 CAP PO DAILY for 30 Days, #30 CAP 0 Refills Prov: YANIQUE ALCARAZ NP 11/05/24 Buprenorphine HCl/Naloxone HCl (Suboxone 12 mg-3 mg Sl Film) 12 Mg-3 Mg Film 1 STRIP SL DAILY for 14 Days, #14 STRIP 0 Refills Prov: YANIQUE ALCARAZ NP 11/05/24 Education Educated: Patient Educated regarding: diagnosis Signature Scribe Signature: f Attestation: Scribed for Yanique Alcaraz Campaign Consultant by Yanique Mortensen NP . 11/05/24 17:19 YANIQUE ALCARAZ NP Nov 05, 2024 11:48
[2024-11-05] MEDS: buprenorphine/naloxone 8MG-2MG SUBlingual film SL ONE (12:06)
[2024-11-05 12:07] VITALS: TEMP 98.5
[2024-11-05] MEDS ORDERED: CARI1.5C PO (12:48)
== END 2024-11-05 12:10 | disposition home or self-care (01) ==
LOC: ER 10:20
DX: F41.9 Anxiety disorder, unspecified (principal); F11.10 Opioid abuse, uncomplicated; Z88.8 Allergy status to other drugs, medicaments and biological substances; Z79.899 Other long term (current) drug therapy; F15.90 Other stimulant use, unspecified, uncomplicated; F19.90 Other psychoactive substance use, unspecified, uncomplicated
CPT/HCPCS: 99283

== ENCOUNTER 2025-01-07 20:07 | Emergency (ER) | payer MEDICAID ==
[~2025-01-07] VITALS: Ht 167.6 cm; Wt 68.9 kg
[~2025-01-07 20:07] MED LIST changes: +BUPR1FIL7 SL; +CARI1.5C PO; -CEPH-585 PO
[2025-01-07 20:37] VITALS: TEMP 98.1
[2025-01-07 21:22] LABS: MEAN PLATELET VOLUME 6.9 FL (7.4-10.4); RED CELL DISTRIBUTION WIDTH 13.3 % (11.5-14.5)
[2025-01-07 21:26] LABS: APTT 32 SECONDS (22-32); INR 1.0 INR
[2025-01-07 21:32] LABS: CREATININE 0.65 MG/DL (0.40-0.90); TOTAL CARBON DIOXIDE 26.2 MMOL/L (24-32); eCRCL 115 ML/MIN; eGFR > 90 ML/MIN
--- NOTE | 2025-01-07 21:56 | Physician Documentation ---
History of Present Illness ~ Chief Complaint: Allergic Reaction Stated Complaint: MED REACTION Time Seen by MD: 21:23 Primary Medical Doctor: TANYA MENDOZA Mode of Arrival: POV, Ambulatory HPI Patient presents to the emergency room with discoloration of her skin. Patient has started Suboxone injection recently. She states she noticed it today with her right hand becoming discolored along with discoloration of her buttock and down her right leg. No prior instances. No pain. She feels discoloration in her right hand is improving. She reports no history of Raynaud's Medication Reconciliation Allergies: Coded Allergies: midazolam (Verified Allergy, Unknown, 11/04/24) Scheduled Buprenorphine HCl/Naloxone HCl (Suboxone 12 mg-3 mg Sl Film), 1 STRIP SL DAILY Cariprazine Hydrochloride (Vraylar), 1 CAP PO DAILY Cyclobenzaprine* (Cyclobenzaprine*), 1 TAB PO HS Ibuprofen (Ibuprofen), 1 TAB PO Q8H Scheduled PRN ONDANSETRON ODT 4mg tablet (Ondansetron Odt), 1 TAB PO Q6H PRN PRN for nausea/vomiting Past Medical History Past Medical History: No Pertinent History, Arrhythmia, Arthritis, Chronic Pain, *PSYCH* Past Surgical History: noncontributory, orthopedic surgeries Alcohol Use: Sober Drug Use: methamphetamine, other Lives In: Home Review of Systems ROS All review of systems negative except as per HPI Physical Exam Vital Signs: Temperature: 98.1, Heart Rate: 87, Respiratory Rate: 12, BP: 96/63, Pulse Oximetry: 100, Weight: 68.900 Oxygen Flow Rate: 0 Physical Exam General: Patient is awake, alert, oriented x4 in no acute distress and well appearing.~ Head: Normocephalic and atraumatic. Eyes: Conjunctival normal. EOMI. PERRL. ENT: Mucous membranes moist. Neck: Supple, trachea is midline. Chest: Clear to auscultation bilaterally without rales, rhonchi, or wheezes. There is no accessory muscle use or retractions. Cardiac: RRR without murmurs, gallops, or rubs. Skin: Mild bluish discoloration of right hand along with bilateral buttock just inferior to the underwear line that has well as down left lateral thigh with no tenderness to palpation Progress Results/Orders Results/Orders Orders - CRUZ BAL MD Dic Panel (01/07/25 21:50) Completed Orders - CRUZ BAL MD Cbc/Diff (01/07/25 20:47) CMP (01/07/25 20:47) Pt Inr (01/07/25 20:47) PTT (01/07/25 20:47) ESR (01/07/25 22:01) C-Reactive Protein (01/07/25 20:58) Vital Signs 01/07/25 01/07/25 01/07/25 01/07/25 20:37 21:28 21:31 23:31 Temp 98.1 Pulse 96 87 79 Resp 16 13 12 14 B/P (MAP) 128/81 96/63 (74) 144/91 (108) Pulse Ox 98 100 98 O2 Flow Rate 0 0 Laboratory Tests Test 01/07/25 20:58 01/07/25 22:08 White Blood Count 7.6 Red Blood Count 4.16 L Hemoglobin 12.3 Hematocrit 35.5 Mean Corpuscular Volume 85.4 Mean Corpuscular Hemoglobin 29.7 Mean Corpuscular Hemoglobin Concent 34.8 Red Cell Distribution Width 13.3 Platelet Count 311 Mean Platelet Volume 6.9 L Neutrophils (%) (Auto) 46.6 Lymphocytes (%) (Auto) 43.7 Monocytes (%) (Auto) 7.2 Eosinophils (%) (Auto) 2.3 Basophils (%) (Auto) 0.2 Neutrophils # (Auto) 3.5 Lymphocytes # (Auto) 3.3 Monocytes # (Auto) 0.5 Eosinophils # (Auto) 0.2 Basophils # (Auto) 0.0 CBC Comment Erythrocyte Sedimentation Rate 5 Prothrombin Time 10.0 10.1 INR International Normalized Ratio 1.0 1.0 Activated Partial Thromboplast Time 32 32 Coagulation Comments Sodium Level 141 Potassium Level 4.0 Chloride Level 105 Carbon Dioxide Level 26.2 Anion Gap 10 Blood Urea Nitrogen 16 Creatinine 0.65 Estimated GFR/1.73 m2 > 90 BUN/Creatinine Ratio 24.6 H Glucose Level 127 H Calcium Level 8.7 Total Bilirubin 0.3 Aspartate Amino Transf (AST/SGOT) 24 Alanine Aminotransferase (ALT/SGPT) 29 Alkaline Phosphatase 75 C-Reactive Protein < 0.05 Total Protein 6.5 Albumin 3.4 Globulin 3.1 Albumin/Globulin Ratio 1.1 Chemistry Comments Fibrinogen 289 D-Dimer 0.25 Medical Decision Making Findings Patient presents to the emergency room for evaluation of bruising around her buttock legs in right hand. Differentials include but are not limited to medication side effect, Henoch-Schnlein purpura, vasculitis, TENS, DIC, Pickard Beck therefore labs ordered which were reassuring. 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 Kenalog administered. The need to follow up with her doctor discussed Departure Disposition: 01 HOME / SELF CARE / HOMELESS Impression: Primary Impression: Bruising Condition: Stable Discharge Instructions: Henoch-Schonlein Purpura, Adult Additional Instructions: Follow up with your doctor. Your labs including inflammatory markers and kidneys were reassuring today. Your coagulation labs were also normal. Referrals: NO PRIMARY CARE PROVIDER (PCP) Signature Scribe Signature: No scribe Attestation: The note accurately reflects work and decisions made by me.Cruz Bal MD 01/07/25 23:42 CRUZ BAL MD Jan 07, 2025 21:56
[2025-01-07 22:30] LABS: APTT 32 SECONDS (22-32); INR 1.0 INR
[2025-01-07 23:50] VITALS: BP 144/91; PULSE 77; RESP 16; O2SAT 98
[2025-01-07] MEDS: triamcinolone acetonide 40mg/ml inj IM ONE (23:58)
== END 2025-01-08 00:03 | disposition home or self-care (01) ==
LOC: ER 20:08
DX: S30.0XXA Contusion of lower back and pelvis, initial encounter (principal); X58.XXXA Exposure to other specified factors, initial encounter; Y93.89 Activity, other specified; Y92.89 Other specified places as the place of occurrence of the external cause; Y99.8 Other external cause status
CPT/HCPCS: 36415; 80053; 85025; 85379; 85384; 85610; 85651; 85730; 86140; 96372; 99283; J3301